=== PATIENT | male | born 1940 | race Caucasian/White ===

== ENCOUNTER 2016-12-12 07:11 | Day surgery (SDC) | payer BC ==
--- NOTE | ~2016-12-12 | EGD ---
EGD REPORT [facility] [address] [place] [address] NAME: ANNEMARIE MAYA JR : 44 STATUS : [facility]#: [id number] AGE: 76 ADM/REG DATE : 12/12/16 MR#: [id number] REPORT SERV DATE: 12/18/16 DICTATED BY: MYKE CACERES DATE: 12/18/16 REPORT STATUS : Draft [facility]ANSCRIBED BY: [facility] DATE: 12/18/16 Endoscopy Center Patient Name: Annemarie Maya Date of : 1940 Attending MD: MYKE CACERES MD Procedure Date No Time: 12/12/2016 Procedure: Upper GI endoscopy Indications: Follow-up of Tobin's esophagus; h/o distal esophageal adenoCA s/p chemo/XRT; on Omeprazole 20mg bid; last EGD Aug 2015. Patient Profile: Informed consent was obtained from the patient by me prior to the procedure. Risks, benefits, and alternatives were discussed including the risk of bleeding, perforation, infection, reaction to medicine, missed lesion, and cardiopulmonary complications. Referring MD: Vincent Thomas Medicines: Monitored Anesthesia Care Complications: No immediate complications. Procedure: Pre-Anesthesia Assessment: - ASA Grade Assessment: III - A patient with severe systemic disease. After obtaining informed consent, the endoscope was passed under direct vision. Throughout the procedure, the patient's blood pressure, pulse, and oxygen saturations were monitored continuously. The GIF H190 [id number] was introduced through the mouth, and advanced to the second part of duodenum. The endoscope was withdrawn with careful examination all mucosal surfaces including retroflexion stomach.The upper GI endoscopy was accomplished without difficulty. The patient tolerated the procedure well. Findings: The examined duodenum was normal. A few localized small erosions were found in the prepyloric region of the stomach. Biopsies were taken with a cold forceps for histology. The cardia, gastric body and gastric fundus (on retroflexion) were normal. There were esophageal mucosal changes secondary to established short-segment Tobin's disease present at the gastroesophageal junction. The maximum longitudinal extent of these mucosal changes was 0.5 cm in length. Threes small tongues, no nodules or esophagitis. Biopsies were taken with a cold forceps for histology. A small hiatus hernia was present. The examined esophagus was normal. EGD REPORT [place] [id number] [facility] [place]. [address] NAME: ANNEMARIE MAYA : [birth year] STATUS : [facility]#: [id number] AGE: 76 ADM/REG DATE : 12/12/16 MR#: [id number] REPORT SERV DATE: 12/18/16 DICTATED BY: MYKE CACERES DATE: 12/18/16 REPORT STATUS : Draft TRANSCRIBED BY: [email or web address] DATE: 12/18/16 Impression: - Normal examined duodenum. - Erosive gastropathy. Biopsied. - Normal cardia, gastric body and gastric fundus. - Esophageal mucosal changes secondary to established short-segment Tobin's disease. Biopsied. - Hiatus hernia. - Normal esophagus. Recommendation: - Patient has a contact number available for emergencies. The signs and symptoms of potential delayed complications were discussed with the patient. Return to normal activities tomorrow. Written discharge instructions were provided to the patient. - Regular diet. - Continue present medications. - Await pathology results. - Avoid NSAID's; reconsider utility daily ASA--he will d/w PCP. Procedure Code(s): --- Professional --- 50435, Esophagogastroduodenoscopy, flexible, transoral; with biopsy, single or multiple Diagnosis Code(s): --- Professional --- K22.70, Tobin's esophagus without dysplasia K31.9, Disease of stomach and duodenum, unspecified K44.9, Diaphragmatic hernia without obstruction or gangrene CPT copyright 2013 [employer]. All rights reserved. The codes documented in this report are preliminary and upon manpower development manager review may be revised to meet current compliance requirements. MYKE CACERES MD 12/12/2016 8:28 AM This report has been signed electronically. Number of Addenda: 0 Note Initiated On: 12/12/2016 8:09 AM Scope Withdrawal Time 0 hours 0 minutes 0 seconds [id number] [id number]
--- NOTE | ~2016-12-12 | EGD ---
EGD REPORT [facility] [address] [place] [address] NAME: ANNEMARIE MAYA JR : 44 STATUS : REG [facility] PAT#: [id number] AGE: 76 ADM/REG DATE : 12/12/16 MR#: [id number] REPORT SERV DATE: 12/12/16 DICTATED BY: MYKE CACERES DATE: 12/12/16 REPORT STATUS : Draft TRANSCRIBED BY: [facility] DATE: 12/12/16 Endoscopy Center Patient Name: Annemarie Maya Date of : 1940 Attending MD: MYKE CACERES MD Procedure Date No Time: 12/12/2016 Procedure: Upper GI endoscopy Indications: Follow-up of Tobin's esophagus; h/o distal esophageal adenoCA s/p chemo/XRT; on Omeprazole 20mg bid; last EGD Aug 2015. Patient Profile: Informed consent was obtained from the patient by me prior to the procedure. Risks, benefits, and alternatives were discussed including the risk of bleeding, perforation, infection, reaction to medicine, missed lesion, and cardiopulmonary complications. Referring MD: Vincent Thomas Medicines: Monitored Anesthesia Care Complications: No immediate complications. Procedure: Pre-Anesthesia Assessment: - ASA Grade Assessment: III - A patient with severe systemic disease. After obtaining informed consent, the endoscope was passed under direct vision. Throughout the procedure, the patient's blood pressure, pulse, and oxygen saturations were monitored continuously. The GIF H190 [id number] was introduced through the mouth, and advanced to the second part of duodenum. The endoscope was withdrawn with careful examination all mucosal surfaces including retroflexion stomach. The upper GI endoscopy was accomplished without difficulty. The patient tolerated the procedure well. Findings: The examined duodenum was normal. A few localized small erosions were found in the prepyloric region of the stomach. Biopsies were taken with a cold forceps for histology. The cardia, gastric body and gastric fundus (on retroflexion) were normal. There were esophageal mucosal changes secondary to established short-segment Tobin's disease present at the gastroesophageal junction. The maximum longitudinal extent of these mucosal changes was 0.5 cm in length. Threes small tongues, no nodules or esophagitis. Biopsies were taken with a cold forceps for histology. A small hiatus hernia was present. The examined esophagus was normal. EGD REPORT [address] [address] NAME: ANNEMARIE MAYA : [birth year] STATUS : REG [facility] PAT#: [id number] AGE: 76 ADM/REG DATE : 12/12/16 MR#: [id number] REPORT SERV DATE: 12/12/16 DICTATED BY: MYKE CACERES DATE: 12/12/16 REPORT STATUS : Draft TRANSCRIBED BY: [employer] DATE: 12/12/16 Impression: - Normal examined duodenum. - Erosive gastropathy. Biopsied. - Normal cardia, gastric body and gastric fundus. - Esophageal mucosal changes secondary to established short-segment Tobin's disease. Biopsied. - Hiatus hernia. - Normal esophagus. Recommendation: - Patient has a contact number available for emergencies. The signs and symptoms of potential delayed complications were discussed with the patient. Return to normal activities tomorrow. Written discharge instructions were provided to the patient. - Regular diet. - Continue present medications. - Await pathology results. - Avoid NSAID's; reconsider utility daily ASA--he will d/w PCP. Procedure Code(s): --- Professional --- 38105, Esophagogastroduodenoscopy, flexible, transoral; with biopsy, single or multiple Diagnosis Code(s): --- Professional --- K22.70, Tobin's esophagus without dysplasia K31.9, Disease of stomach and duodenum, unspecified K44.9, Diaphragmatic hernia without obstruction or gangrene CPT copyright 2013 [employer]. All rights reserved. The codes documented in this report are preliminary and upon pre coder review may be revised to meet current compliance requirements. MYKE CACERES MD 12/12/2016 8:28 AM This report has been signed electronically. Number of Addenda: 0 Note Initiated On: 12/12/2016 8:09 AM Scope Withdrawal Time 0 hours 0 minutes 0 seconds [id number] [address]
[~2016-12-12 07:11] MED LIST: 8 HOUR650 MG PO; ADVIL PO; ANDROGEL1 % TOP; ANDROGEL5 TOP; ASA5GR PO; ASAB PO; B COMPLETE PO; CELEBREX2 PO; ELDERTONIC PO; IBU400 PO; IRON PO; IRON325 MG PO; LEVOTHYROXIN25 MCG PO; LIPITOR10 PO; MOTRIN IB200 MG PO; MUCINEX1200 MG PO; MULTIPLE VIT PO; PRILO PO; SUPER B COMP PO; VIAGRA100 MG PO; VITD PO
== END 2016-12-12 23:59 | disposition home or self-care (01) ==
LOC: DMU 07:11
PROVIDERS: Internal Medicine Gastroenterology
PROC: 0DB78ZX Excision of Stomach, Pylorus, Via Natural or Artificial Opening Endoscopic, Diagnostic (ICD-10-PCS; 2016-12-12)
PROC: 0DB58ZX Excision of Esophagus, Via Natural or Artificial Opening Endoscopic, Diagnostic (ICD-10-PCS; principal; 2016-12-12 09:00)
DX: K22.70 Barrett's esophagus without dysplasia (principal); K20.9 Esophagitis, unspecified; K29.00 Acute gastritis without bleeding; K44.9 Diaphragmatic hernia without obstruction or gangrene; K21.9 Gastro-esophageal reflux disease without esophagitis; E03.9 Hypothyroidism, unspecified; G47.33 Obstructive sleep apnea (adult) (pediatric); Z88.5 Allergy status to narcotic agent; Z79.82 Long term (current) use of aspirin; Z79.899 Other long term (current) drug therapy; Z98.890 Other specified postprocedural states
CPT/HCPCS: 88305; 88342